=== PATIENT | male | born 1955 | race Caucasian/White ===

== ENCOUNTER → 2016-10-27 | Outpatient (CLI) | payer MEDICARE, MEDICAID ==
[~2016-10-27] MED LIST: ANTIVERT25 MG PO; COLCHICINE0.6 MG PO; FLOMAX0.4 MG PO; HYDROCODONE BIT1 T11 PO; INDOCIN50 MG PO; LISINOPRIL-HYDR1 TA1 PO; LISINOPRIL10 MG PO; MEDROL DOSEPAK4 MG PO; METFORMIN500 MG PO; MOTRIN800 MG PO; Medrol Dosepak4 MG PO; NAPROSYN500 MG PO; ULORIC80 MG PO; VICODIN 5/500 505 MG PO; ZOFRAN ODT8 MG PO; ZOFRAN8 MG PO
== END | disposition home or self-care (01) ==
LOC: MRI 08:40
DX: S62.001A Unspecified fracture of navicular [scaphoid] bone of right wrist, initial encounter for closed fracture (principal); X58.XXXA Exposure to other specified factors, initial encounter; Y93.89 Activity, other specified; Y92.89 Other specified places as the place of occurrence of the external cause; Y99.8 Other external cause status; M25.431 Effusion, right wrist; Z91.81 History of falling

== ENCOUNTER → 2019-06-13 | Outpatient (CLI) | payer MEDICARE | END | disposition home or self-care (01) | LOC: LAB 09:00 | DX: G40.909 Epilepsy, unspecified, not intractable, without status epilepticus (principal); E11.9 Type 2 diabetes mellitus without complications ==

== ENCOUNTER → 2020-05-25 | Outpatient (CLI) | payer MEDICARE ==
[2020-05-25 08:49] LABS: BASO # 0.1 10*3/uL (0.0-0.1); BASO % 0.9 % (0.0-1.0); EOS # 0.1 10*3/uL (0.0-0.4); EOS % 1.9 % (1.0-4.0); HEMATOCRIT 40.8 % (42.0-52.0); LYMPH % 28.2 % (27.0-41.0); MEAN CELL VOLUME 95.1 fl (80.0-94.0); MEAN CORPUSCULAR HGB 31.9 pg (27.0-31.0); MEAN CORPUSCULAR HGB CONC 33.6 g/dl (33.0-37.0); MEAN PLATELET VOLUME 10.4 fl (9.6-12.3); MONO # 0.6 10*3/uL (0.1-1.0); MONO % 8.9 % (3.0-9.0); NEUT # 4.1 10*3/uL (2.3-7.9); PLATELET COUNT AUTOMATED 156 10*3/uL (130-400); RED BLOOD COUNT 4.29 10*6/uL (4.50-5.90); RED CELL DISTRI WIDTH 13.1 % (0-14.5)
[2020-05-25 09:17] LABS: ALBUMIN 3.4 gm/dl (3.1-4.5); BUN 10 mg/dl (7-24); CHLORIDE 108 mmol/L (98-107); POTASSIUM 4.3 mmol/L (3.5-5.1); SGOT/AST 43 IU/L (3-35); SODIUM 141 mmol/L (136-145)
[2020-05-25 09:28] LABS: ALKALINE PHOSPHATASE 80 U/L (45-117); CHOLESTEROL 174 mg/dL (<200); CREATININE 0.91 mg/dL (0.70-1.30); FREE T4 0.99 ng/dl (0.76-1.46); HDL CHOLESTEROL 37 mg/dl (40-60); LDL CHOLESTEROL 98 mg/dL (9-159); SGPT/ALT 28 U/L (12-78); TOTAL PROTEIN 7.5 gm/dL (6.4-8.2); TRIGLYCERIDES 197 mg/dl (<150); URIC ACID 5.9 mg/dL (3.5-7.2); VALPROIC ACID (DEPAKENE) 72.1 ug/ml (50-100); VLDL CHOLESTEROL 39 mg/dL (6-40)
[2020-05-25 10:01] LABS: VITAMIN D, 25-HYDROXY 40.9 ng/mL (30-100)
== END | disposition home or self-care (01) ==
LOC: LAB 08:17
PROVIDERS: Internal Medicine
DX: Z12.5 Encounter for screening for malignant neoplasm of prostate (principal); Z00.00 Encounter for general adult medical examination without abnormal findings; I10 Essential (primary) hypertension; G40.909 Epilepsy, unspecified, not intractable, without status epilepticus; E11.9 Type 2 diabetes mellitus without complications; E78.2 Mixed hyperlipidemia; M10.9 Gout, unspecified; E55.9 Vitamin D deficiency, unspecified